=== PATIENT | female | born 1985 | race Caucasian/White ===

== ENCOUNTER 2018-04-20 06:10 | Day surgery (SDC) | payer OTHER ==
[2018-04-17 12:42] VITALS: BMI 38.6
--- NOTE | 2018-04-19 21:52 | HP ---
CHIEF COMPLAINT: Lumbar back pain with right leg numbness and weakness. HISTORY OF PRESENT ILLNESS: Ms. Wong has been referred to our clinic for 6-7 months of back and right leg pains. The patient states that her pain was from a fall down some stairs in 07/2017. Sinc e then, there is back pain and radiating right leg pain. There is numbness in the right great toe an d weakness in the ankle. The left leg is unaffected, the neck is unaffected. There is no incontinen ce. There is some numbness along the ulnar forearm on the right occasionally. The leg pain is worse in the car, worse with bending forward, or straightening the right leg while in the chair. REVIEW OF SYSTEMS: A 10-point review of systems has been completed and is negative other than stated above in the HPI. PAST MEDICAL HISTORY: Cervical cancer, shingles. PAST SURGICAL HISTORY: Hysterectomy, tonsillectomy. FAMILY HISTORY: Father is alive, diagnosed with diabetes and hypertension. Mother is alive, diagnos ed with hypertension. Siblings are alive and children are alive. SOCIAL HISTORY: Patient is a nonsmoker. She does not drink alcohol or use any other illicit drugs. She does not have an occupation. She is and has 3 children. MEDICATIONS: Tylenol with Codeine #4, Flexeril, gabapentin. ALLERGIES: No known drug allergies. PHYSICAL EXAMINATION: CONSTITUTION: The patient is alert and oriented, in no sign of distress. HEENT: Eyes, pupils are equal, round, reactive to light. Hearing is intact. Moist mucous membranes . PULMONARY: Normal work of breathing in room air. CARDIOVASCULAR: Regular rate and rhythm. Normal S1 and S2. NEUROLOGIC: Cranial nerves are intact. Cerebellar exam: There is no truncal ataxia. Gait and stat ion are normal. Weakness in anterior tibialis when trying to walk on heels, worse on the right side. Motor exam, right anterior tibialis weakness; iliopsoas, quadriceps, hamstrings, calves, and dorsif lexion, plantar flexion normal; EHL weakness is not as pronounced as anterior tibialis weakness. Sen carmina exam: There is no dermatomal sensory loss in L1, L2, L3, L4, altered L5 and S1 sensation on the right. Reflex exam is normal in patellar and Achilles. Babinski's is absent. ASSESSMENT: 1. Radiculopathy in lumbar region. 2. 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 PLAN: Dr. Yang has offered her laminectomy, diskectomy. We have discussed indications, risks, benefits, and alternatives, and expected results from surgery. The risks discussed included but are not limited to bleeding, infection, CSF leak, nerve damage, weakness, incontinence, cauda equina inju ry, arachnoiditis, paralysis, ventilator dependence, wheelchair dependence, loss of vision, cardiopul monary complications of anesthesia or . Long-term complications discussed included but are not limited to spinal instability and the need for future surgery. She understands the risks and is will ing to proceed with surgery.
[2018-04-20] MEDS ORDERED: Thrombin 5000 UNITS/5 ML VIAL ONE (06:17)
[2018-04-20] MEDS ORDERED: Sodium Chloride 0.9% 10 ML ONE (06:17)
[2018-04-20] MEDS ORDERED: Bupivacaine HCl 0.5%/Epinephrine 1:200,000/PF 30 ml Vial ONE (06:17)
[2018-04-20] MEDS ORDERED: CEFAZOLIN/Water 2 GM/20 ML SYRINGE ONE ×2 (06:41→11:23)
[2018-04-20] MEDS ORDERED: Fentanyl 100 MCG/2 ML VIAL ONE ×5 (06:43→10:41)
[2018-04-20] MEDS ORDERED: Midazolam HCl 2 mg/2 ml Vial ONE ×2 (06:50→09:43)
[2018-04-20 07:16] LABS: #Basophils 0.1 thou/uL (0.0-0.2); #Eosinphils 0.1 thou/uL (0.0-0.7); #Lymphocytes 4.6 thou/uL (1.20-3.40); #Monocytes 0.6 thou/uL (0.11-0.59); #Neutrophils 3.9 thou/uL (1.40-6.50); %Eosinophils 1.6 % (0.0-10.0); %Lymphocytes 49.2 % (21.0-51.0); %Monocytes 6.6 % (0.0-10.0); %Neutrophils 41.7 % (42.0-75.0); Hemoglobin 12.1 g/dL (12.0-16.0); Mean Corpuscular HGB CONC 32.6 g/dL (32.0-36.0); Mean Corpuscular Hemoglobin 20.1 pg (27.0-31.0); Mean Corpuscular Volume 61.6 fL (78.0-98.0); Mean Platelet Volume 11.7 fL (7.4-10.4); Platelet Count 259 thou/uL (130-400); RBC Distribution Width 15.5 % (11.5-14.5); Red Blood Cell (RBC) Count 6.01 mill/uL (4.20-5.40); White Blood Cell (WBC) Count 9.3 thou/uL (4.8-10.8)
[2018-04-20 07:19] LABS: INR-International Normal Ratio 0.9; PTT 25.8 SEC (22.9-36.1); Prothrombin Time 12.4 SEC (12.0-14.7)
[2018-04-20 07:52] LABS: Polychromasia MODERATE = 3-4 cells (100X) (0-2/hpf)
[2018-04-20 08:03] LABS: Reflex for Review?? YES
[2018-04-20 08:07] LABS: Microcytosis MARKED = >30 cells (100X) (0-5/hpf)
--- NOTE | 2018-04-20 09:44 | OP ---
DATE OF OPERATION: 04/20/2018 SURGEON: Jeremias Yang M.D. INDUSTRIAL ECOLOGY TECHNICIAN: Ngoc Gatica PA-C. PREOPERATIVE INDICATION: Treat pain, prevent neurological deterioration. 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 OPERATIVE PROCEDURE: Right-sided partial hemilaminectomy, medial facetectomy, foraminotomy L4-5; rig ht L5-S1 partial hemilaminectomy, medial facetectomy, foraminotomy, and microdiskectomy; operating mi croscope. PREOPERATIVE MEDICATIONS: Ancef 2 grams IV. DRAIN NUMBER: Zero. DRAIN TYPE: None. OPERATIVE DICTATION: The patient was brought to the operating room. General endotracheal anesthesia was induced. The patient was positioned prone on the operating table with her chest and hips suppor adis by gel-filled chest rolls. A lateral fluoro radiograph was used to plan our incision. The lumba r skin was sterilely prepped and draped. We opened with a 10-blade knife and controlled bleeding wit h bipolar and monopolar cautery. We used monopolar cautery to dissect through copious amount of subc utaneous tissue all the way to the thoracodorsal fascia. The fascia was quite deep, given the patien t's size. Reflected the paraspinal muscles off the spinous process and lamina of L4, L5, and S1, and placed a self-retaining retractor. A lateral fluoro radiograph confirmed the levels upon which we w ere operating. We then used a Kerrison rongeur to fashion a partial hemilaminectomy and medial facet ectomy at L4-5 and L5-S1. We removed the yellow ligament in piecemeal fashion. The operative micros cope was brought into the field. Under microscopic magnification and using microsurgical techniques, we removed the remainder of the y ellow ligament. We performed medial facetectomy at L4-5 and L5-S1 until we were flushed with the L5 and S1 pedicles. We gently performed foraminotomies over the exiting L5 and S1 nerve roots until a M urphy ball probe could pass through the lateral recess and out the foramen without impingement. We t hen placed a nerve retractor under the S1 nerve root. We gently retracted medially and found the carol tral intervertebral disk protrusion. We gently controlled ventral epidural veins with gentle bipolar cautery. We incised the disk and removed disk contents from the protruding portion with curettes an d pituitary rongeurs. At the completion of the diskectomy, the S1 nerve root was not stretched as mu ch as it had been previously, it was freely mobile, and decompressed circumferentially. We irrigated copiously with bacitracin irrigation. We waxed the bone edges. We infused local anesthetic in the paraspinal muscles. We controlled epidural veins with gentle bipolar cautery. We closed the wound i n anatomic layers and we applied a sterile dressing. This is a clean case and no contamination.
[2018-04-20] MEDS ORDERED: HYDROmorphone 0.5 MG/0.5 ML SYRINGE ONE ×3 (09:45→09:50)
[2018-04-20] MEDS ORDERED: Lidocaine 1% (PF) 30 ML VIAL ONE (10:00)
[2018-04-20] MEDS ORDERED: Ketorolac Tromethamine 30 MG/ML VIAL ONE (10:32)
[2018-04-20] MEDS ORDERED: HYDROcodone/Acetaminophen 5/325 mg Tablet ONE (11:09)
[2018-04-20] MEDS ORDERED: tiZANidine HCl 4 MG TAB ONE (11:09)
[2018-04-20] MEDS ORDERED: Dexamethasone 20 MG/5 ML VIAL ONE (14:58)
[2018-04-20] MEDS ORDERED: Glycopyrrolate 0.2 MG/ML 5 ML SYRINGE ONE (14:58)
[2018-04-20] MEDS ORDERED: PROPOFOL 200 MG/20 ML VIAL ONE (14:58)
[2018-04-20] MEDS ORDERED: PROVENTIL INHALER 6.7 G (200 INHALATIONS) ONE (14:58)
[2018-04-20] MEDS ORDERED: Lidocaine 1% PF 5 ML VIAL ONE ×2 (14:58)
[2018-04-20] MEDS ORDERED: Ondansetron HCl/PF 4 MG/2 ML Vial ONE (14:58)
== END 2018-04-20 11:50 | disposition home or self-care (01) ==
LOC: SDC 06:10
PROVIDERS: ATTEND Neurological Surgery
PROC: 01NB0ZZ Release Lumbar Nerve, Open Approach (ICD-10-PCS; principal; 2018-04-20)
PROC: 0SB20ZZ Excision of Lumbar Vertebral Disc, Open Approach (ICD-10-PCS; principal; 2018-04-20)
DX: M48.061 Spinal stenosis, lumbar region without neurogenic claudication (principal); M51.17 Intervertebral disc disorders with radiculopathy, lumbosacral region; Z79.899 Other long term (current) drug therapy
CPT/HCPCS: 36415; 76001; 85025; 85060; 85610; 85730; 96374; 96375; A4216; J0131; J0670; J1100; J1170; J1885; J2001; J2250; J2405; J2704; J3010; J3370; J3490